=== PATIENT | male | born 1990 | race Hispanic/Latino ===

== ENCOUNTER 2017-03-16 22:39 | Emergency (ER) | payer SELFPAY ==
[2017-03-16] MEDS ORDERED: ULTRAM50 M1 PO (23:35)
[2017-03-16 23:58] VITALS: BP 165/97
== END 2017-03-16 23:55 | disposition home or self-care (01) | DRG 563 ==
LOC: ED 22:39
PROC: 2W3FX1Z Immobilization of Left Hand using Splint (ICD-10-PCS; principal; 2017-03-16)
DX: S62.613A Displaced fracture of proximal phalanx of left middle finger, initial encounter for closed fracture (principal); W23.0XXA Caught, crushed, jammed, or pinched between moving objects, initial encounter; Y93.89 Activity, other specified; Y92.74 Orchard as the place of occurrence of the external cause; Y99.0 Civilian activity done for income or pay